=== PATIENT | female | born 1975 | race American Indian/Alaskan Native ===

== ENCOUNTER 2017-07-10 06:23 | Day surgery (SDC) | payer OTHER ==
[2017-07-10 06:41] VITALS: BMI 35.4
[2017-07-10 07:09] LABS: HEMOGLOBIN 12.3 g/dL (12.0-16.0); MEAN CELL VOLUME 79.4 fl (81.0-99.0); MEAN CORPUSCULAR HEMOGLOBIN 25.2 pg (27.0-31.0); MEAN CORPUSCULAR HGB CONC 31.7 g/dL (33.0-37.0); RBC 4.89 Mil/uL (3.80-5.20); RED CELL DISTRIBUTION WIDTH 14.4 % (11.5-14.5)
[2017-07-10 07:19] VITALS: RESP 18
[2017-07-10] MEDS ORDERED: Succinylcholine 200 mg/10 ml Inj IV ONE (08:54)
[2017-07-10] MEDS ORDERED: Propofol 10 mg/ml Inj (20 ML) ONE (08:54)
[2017-07-10] MEDS ORDERED: Midazolam 2 MG/2 ML VIAL ONE (08:54)
[2017-07-10] MEDS ORDERED: Lactated Ringer's 1,000 ML IV ONE (09:05)
[2017-07-10] MEDS ORDERED: Dexamethasone 4 mg/1 ml ONE (09:28)
[2017-07-10 13:38] VITALS: BP 97/55; PULSE 78; TEMP 97.6; O2SAT 97
--- NOTE | 2017-07-11 01:47 | OP ---
PROCEDURE DATE: 07/10/2017 PREOPERATIVE DIAGNOSES: Abnormal uterine bleeding and pelvic pain. POSTOPERATIVE DIAGNOSES: Abnormal uterine bleeding, pelvic pain, pending pathology. PROCEDURE: Hysteroscopy with MyoSure. FINDINGS: Moderate amount of tissue was obtained after surgery, which looked like a small myoma. SURGEON: Scout Varner MD TYPE OF ANESTHESIA: General anesthesia. ANESTHESIA ADMINISTERED BY: Walter Desouza MD ESTIMATED BLOOD LOSS: Minimal. DESCRIPTION OF PROCEDURE: With the patient in the dorsal lithotomy position under general anesthesia, the patient was prepped and draped in the usual sterile manner. Straight catheter was used to empty the bladder after which the uterus was examined under anesthesia. A weighted speculum placed in the posterior vagina. Cervix was grasped anteriorly with single-tooth tenaculum and dilated. A hysteroscope was placed in the area of mass, which was recognized, which looks like a small fibroid. A hysteroscope was then used. The MyoSure was inserted and after this was done, the mass was identified and removed with MyoSure which is probably different, looks like a fibroid. After this was done, all the instruments were removed from the vagina. The patient tolerated the procedure well and was in satisfactory condition on her way to recovery room. Scout Varner MD
== END 2017-07-10 13:39 | disposition home or self-care (01) ==
LOC: H.OPSURG 06:23
PROVIDERS: ATTEND Specialist
DX: D25.9 Leiomyoma of uterus, unspecified (principal)
CPT/HCPCS: 36415; 58561; 85027; 88305; J0330; J1100; J1170; J1885; J2001; J2250; J2405; J2704; J2765; J3010; J7030; J7120